=== PATIENT | male | born 1960 | race Caucasian/White ===

== ENCOUNTER 2018-09-29 10:46 | Emergency (ER) | payer BC ==
[~2018-09-29] VITALS: Ht 182.9 cm; Wt 88.5 kg
--- OUTSIDE RECORDS SUMMARY | 2018-09-29 10:49 | XMS REPORT | Summary of Care ---
Author Author [facility] Organization [facility] Address Unknown Phone Unavailable Encounter HQ Rosina(FIN) [id number] Date(s): 07/12/17 - 07/14/17 [facility] [id number] [place] [address]- S [phone] Encounter Diagnosis Pneumonia, unspecified organism (Final) - Sepsis, unspecified organism (Final) - 07/23/17 Pneumonia, unspecified organism (Final) - Acidosis (Final) - Chronic obstructive pulmonary disease with (acute) exacerbation (Final) - Chronic obstructive pulmonary disease with acute lower respiratory infection (Final) - Nicotine dependence, cigarettes, uncomplicated (Final) - Essential (primary) hypertension (Final) - Discharge Disposition: Home or Self Care Attending Physician: Yoselin Chamberlain MD Admitting Physician: Yoselin Chamberlain MD Vital Signs 1 2 3 Most recent to oldest [Reference Range]: 177.8 cm (07/12/17 6:56 AM) Height 97.9 DegF (07/14/17 8:37 AM) 97.4 DegF (07/14/17 4:53 AM) 97.5 DegF (07/14/17 1:19 AM) Temperature Oral [96.4-99.1 DegF] 136/70 mmHg (07/14/17 8:37 AM) 153/85 mmHg *HI* (07/14/17 4:53 AM) 155/87 mmHg *HI* (07/14/17 1:19 AM) Blood Pressure [90-140/60-90 mmHg] 16 BRMIN (07/14/17 8:37 AM) 16 BRMIN (07/14/17 8:21 AM) 16 BRMIN (07/14/17 4:53 AM) Respiratory Rate [14-20 BRMIN] 79 bpm (07/14/17 8:37 AM) 71 bpm (07/14/17 4:53 AM) 74 bpm (07/14/17 1:19 AM) Peripheral Pulse Rate [60-100 bpm] 91.364 kg (07/12/17 6:56 AM) Weight 28.9 m2 (07/12/17 6:56 AM) Body Mass Index Problem List No data available for this section Allergies, Adverse Reactions, Alerts Substance Reaction Severity Status NKDA Active Medications acetaminophen 650 mg, 2 tab, Route: PO, Drug form: TAB, ONCE, kg, Priority: STAT, Start date: 07/12/17 4:19:00 OBSERVER HELPER, Stop date: 07/12/17 4:19:00 OBSERVER HELPER Notes: Do not exceed 4 gm/day. (Same as: Tylenol) Start Date: 07/12/17 Stop Date: 07/12/17 Status: Completed albuterol-ipratropium 2.5-0.5 mg inhalation solution 3 mL, Route: NEB, Drug Form: SOLN, kg, RQID, STAT, Start date: 07/12/17 4:17:00 OBSERVER HELPER, Duration: 30 day, Stop date: 08/10/17 19:00:00 CDT Notes: (Same as: Duoneb) Start Date: 07/12/17 Stop Date: 07/14/17 Status: Discontinued albuterol-ipratropium 2.5-0.5 mg inhalation solution 3 mL, Route: NEB, Drug Form: SOLN, kg, RQ4H, PRN Shortness of breath, STAT, Star t date: 07/12/17 5:22:00 OBSERVER HELPER, Duration: 30 day, Stop date: 08/11/17 5:21:00 CDT Notes: (Same as: Duoneb) Start Date: 07/12/17 Stop Date: 07/14/17 Status: Discontinued Ativan 1 mg, 0.5 mL, Route: IVP, Drug form: INJ, ONCE, Dosing Weight 91.364, kg, PRN An xiety, Start date: 07/12/17 20:45:00 OBSERVER HELPER Notes: (Same as: Ativan) Start Date: 07/12/17 Stop Date: 07/12/17 Status: Completed azithromycin + Sodium Chloride 0.9% IV 250 mL 500 mg, Route: IVPB, ONCE, kg, Priority: STAT, Start date: 07/12/17 4:33:00 OBSERVER HELPER, Stop date: 07/12/17 4:33:00 OBSERVER HELPER, ABX Indication: Pneumonia Notes: (Same As: Zithromax IV) Start Date: 07/12/17 Stop Date: 07/12/17 Status: Completed benzonatate 100 mg oral capsule 100 mg=1 cap, PO, TID, PRN as needed for cough, X 5 day, # 15 caplet, 0 Refill(s ), Pharmacy: [id number] Start Date: 07/14/17 Stop Date: 07/19/17 Status: Completed bisoprolol-hydrochlorothiazide 2.5 mg-6.25 mg oral tablet 1 tab, PO, BID, 0 Refill(s) Start Date: 07/12/17 Stop Date: 07/12/17 Status: Discontinued bisoprolol-hydrochlorothiazide 5 mg-6.25 mg oral tablet 1 tab, PO, BID, 0 Refill(s) Start Date: 07/12/17 Status: Ordered bisoprolol-hydrochlorothiazide 5 mg-6.25 mg oral tablet 1 tab, Route: PO, Drug Form: TAB, Dosing Weight 91.364, kg, BID, Start date: 03/22 17:00:00 CDT, Duration: 30 day, Stop date: 08/12/17 9:00:00 CDT Start Date: 07/13/17 Stop Date: 07/13/17 Status: Discontinued cefTRIAXone 1 gm, Route: IVPB, ONCE, kg, Priority: STAT, Start date: 07/12/17 4:33:00 OBSERVER HELPER, S top date: 07/12/17 4:33:00 OBSERVER HELPER, ABX Indication: Pneumonia Start Date: 07/12/17 Stop Date: 07/12/17 Status: Completed docusate 100 mg, 1 cap, Route: PO, Drug form: CAP, BID, Dosing Weight 91.364, kg, PRN Con stipation, Start date: 07/13/17 10:27:00 CDT, Duration: 30 day, Stop date: 08/12 10:26:00 CDT Notes: (Same as: Colace) (Do Not Crush) Start Date: 07/13/17 Stop Date: 07/14/17 Status: Discontinued enalapril 20 mg, PO, Daily, 0 Refill(s) Start Date: 07/12/17 Status: Ordered enalapril 20 mg, 2 tab, Route: PO, Drug form: TAB, Daily, Dosing Weight 91.364, kg, Start date: 07/13/17 15:00:00 CDT, Duration: 30 day, Stop date: 08/12/17 9:00:00 CDT Notes: (Same as: Vasotec) Start Date: 07/13/17 Stop Date: 07/14/17 Status: Discontinued folic acid 1 mg, 1 tab, Route: PO, Drug form: TAB, Daily, Dosing Weight 91.364, kg, Start d ate: 07/14/17 9:00:00 CDT, Duration: 5 day, Stop date: 07/18/17 9:00:00 CDT Notes: (Same as: Folvite) Start Date: 07/14/17 Stop Date: 07/14/17 Status: Discontinued guaiFENesin liquid 100 mg/ 5 mL 200 mg, 10 mL, Route: PO, Drug Form: LIQ, Dosing Weight 91.364, kg, Q4H, PRN Cou gh, Start date: 07/13/17 10:43:00 CDT, Duration: 30 day, Stop date: 08/12/17 10: 42:00 CDT Notes: (Same as: Robitussin) Start Date: 07/13/17 Stop Date: 07/14/17 Status: Discontinued guaiFENesin liquid 100 mg/ 5 mL 100 mg, 5 mL, Route: PO, Drug Form: LIQ, Dosing Weight 91.364, kg, Q4H, PRN Coug h, Start date: 07/12/17 18:38:00 OBSERVER HELPER, Duration: 30 day, Stop date: 08/11/17 18:3 7:00 CDT Notes: (Same as: Robitussin) Start Date: 07/12/17 Stop Date: 07/13/17 Status: Discontinued hydrochlorothiazide 6.25 mg, 0.5 tab, Route: PO, Drug form: TAB, Daily, Start date: 07/13/17 15:00:0 0 CDT, Duration: 30 day, Stop date: 08/12/17 9:00:00 CDT Notes: (Same as: Hydrodiuril). Give with food. Start Date: 07/13/17 Stop Date: 07/13/17 Status: Discontinued ibuprofen 600 mg, 1 tab, Route: PO, Drug form: TAB, ONCE, kg, Priority: STAT, Start date: 07/12/17 5:15:00 OBSERVER HELPER, Stop date: 07/12/17 5:15:00 OBSERVER HELPER Notes: (Same as: Motrin)"Do Not Crush" Take with food. Start Date: 07/12/17 Stop Date: 07/12/17 Status: Completed Levaquin 750 mg, 150 mL, Route: IVPB, Drug form: SOLN, Q24H, kg, Start date: 07/12/17 6:0 0:00 OBSERVER HELPER, Duration: 30 day, Stop date: 08/10/17 6:00:00 CDT, ABX Indication: Pne umonia Notes: (Same as:Levaquin) Start Date: 07/12/17 Stop Date: 07/14/17 Status: Discontinued Levaquin 750 mg oral tablet 750 mg=1 tab, PO, Daily, X 5 day, # 5 tab, 0 Refill(s), Pharmacy: [id number] Start Date: 07/14/17 Stop Date: 07/19/17 Status: Completed LORazepam 2 mg, 1 mL, Route: IVP, Drug form: INJ, Q2H, Dosing Weight 91.364, kg, PRN Withd aimee, Start date: 07/13/17 11:17:00 CDT, Duration: 30 day, Stop date: 08/12/17 11:16:00 CDT Notes: (Same as: Ativan) Start Date: 07/13/17 Stop Date: 07/14/17 Status: Discontinued multivitamin 1 tab, Route: PO, Dosing Weight 91.364, kg, Daily, Start date: 07/14/17 9:00:00 CDT, Duration: 5 day, Stop date: 07/18/17 9:00:00 CDT Start Date: 07/14/17 Stop Date: 07/13/17 Status: Deleted multivitamin with minerals 1 tab, Route: PO, Drug Form: TAB, Daily, Start date: 07/14/17 9:00:00 CDT, Durat ion: 30 day, Stop date: 08/12/17 9:00:00 CDT Notes: (Same as:Thera-M, Theragran-M)WASTE: F/P - Black; E - Municipal Trash Bin Give with food. Start Date: 07/14/17 Stop Date: 07/14/17 Status: Discontinued nicotine 14 mg, 1 patch, Route: TOP, Drug form: ERFILM, Daily, Dosing Weight 91.364, kg, Start date: 07/12/17 14:00:00 OBSERVER HELPER, Duration: 30 day, Stop date: 08/11/17 9:00:00 CDT Notes: (Same as: Habitrol)"Remove old patch before application of new patch"WAST E: F/P - P Waste Black; E - P Waste Black Start Date: 07/12/17 Stop Date: 07/14/17 Status: Discontinued normal saline 0.9% IV 1,000 mL 1,000 mL, Rate: 100 ml/hr, Infuse over: 10 hr, Route: IV, Dosing Weight 91.364 k g, Total Volume: 1,000, Start date: 07/12/17 9:40:00 OBSERVER HELPER, Duration: 30 day, Stop date: 08/11/17 9:39:00 CDT, 2.14, m2 Start Date: 07/12/17 Stop Date: 07/13/17 Status: Discontinued potassium chloride 40 mEq, 2 tab, Route: PO, Drug form: ERTAB, PRN, Dosing Weight 91.364, kg, PRN A bnormal Lab Result, Electrolyte replacement, Start date: 07/14/17 11:20:00 CDT, Duration: 30 day, Stop date: 08/13/17 11:19:00 CDT Notes: (Same as: K-Dur 20)"Do Not Crush" With food and full glass of water Start Date: 07/14/17 Stop Date: 07/14/17 Status: Discontinued potassium chloride 40 mEq, 2 tab, Route: PO, Drug form: ERTAB, ONCE, Dosing Weight 91.364, kg, PRN Abnormal Lab Result, Electrolyte replacement, Start date: 07/13/17 7:35:00 CDT Notes: (Same as: K-Dur 20)"Do Not Crush" With food and full glass of water Start Date: 07/13/17 Stop Date: 07/13/17 Status: Completed predniSONE 40 mg, 2 tab, Route: PO, Drug form: TAB, Daily, Dosing Weight 91.364, kg, Start date: 07/13/17 9:00:00 CDT, Duration: 30 day, Stop date: 08/11/17 9:00:00 CDT Notes: Take with food. Start Date: 07/13/17 Stop Date: 07/14/17 Status: Discontinued predniSONE 60 mg, 3 tab, Route: PO, Drug form: TAB, Daily, kg, Priority: STAT, Start date: 07/12/17 5:22:00 OBSERVER HELPER, Duration: 30 day, Stop date: 08/10/17 9:00:00 CDT Notes: Take with food. Start Date: 07/12/17 Stop Date: 07/13/17 Status: Discontinued predniSONE 20 mg oral tablet 40 mg=2 tab, PO, Daily, X 3 day, # 6 tab, 0 Refill(s), Pharmacy: [id number] Start Date: 07/14/17 Stop Date: 07/17/17 Status: Completed Symbicort 160/4.5 inhalation aerosol with adapter 2 inhalation, Route: INHALATION, Drug Form: AERO/A, Dosing Weight 91.364, kg, RB ID, Start date: 07/12/17 9:39:00 OBSERVER HELPER, Duration: 30 day, Stop date: 08/11/17 8:00 :00 CDT Notes: (Same as: Symbicort)WASTE: Aerosol - Return to Pharmacy Start Date: 07/12/17 Stop Date: 07/14/17 Status: Discontinued Symbicort 80/4.5 inhalation aerosol with adapter 2 puff, INHALATION, BID, # 1 ea, 0 Refill(s), Pharmacy: [id number] Start Date: 07/14/17 Stop Date: 08/13/17 Status: Ordered Tessalon Perles 100 mg, 1 cap, Route: PO, Drug form: CAP, TID, Dosing Weight 91.364, kg, Start d ate: 07/12/17 19:00:00 OBSERVER HELPER, Duration: 30 day, Stop date: 08/11/17 17:00:00 CDT Notes: (Same As: Tessalon Perles)"Do Not Crush" Start Date: 07/12/17 Stop Date: 07/14/17 Status: Discontinued thiamine 100 mg, 1 tab, Route: PO, Drug form: TAB, Daily, Dosing Weight 91.364, kg, Start date: 07/14/17 9:00:00 CDT, Duration: 5 day, Stop date: 07/18/17 9:00:00 CDT Notes: (Same As: Vitamin B1) Start Date: 07/14/17 Stop Date: 07/14/17 Status: Discontinued Ventolin HFA 90 mcg/inh inhalation aerosol with adapter 2 puff, INHALER, Q6H, PRN wheezing, coughing, or shortness of breath, # 1 ea, 1 Refill(s), Pharmacy: [id number] Start Date: 07/14/17 Stop Date: 09/12/17 Status: Ordered Zebeta 5 mg, 1 tab, Route: PO, Drug form: TAB, Daily, Start date: 07/13/17 15:00:00 CDT , Duration: 30 day, Stop date: 08/12/17 9:00:00 CDT Notes: (Same As: Zebeta) Start Date: 07/13/17 Stop Date: 07/13/17 Status: Discontinued Ziac 5/6.25 (bisoprolol 5 mg/hctz 6.25 mg) tablet Ziac 5/6.25 (bisoprolol 5 mg/hctz 6.25 mg) tablet, 1 tablet, Drug form: MISC, [place]: PO, BID, 07/13/17 19:30:00 CDT, Duration: 30 day, Stop date: 08/12/17 17:00 :00 CDT Start Date: 07/13/17 Stop Date: 07/14/17 Status: Discontinued Results ELECTROLYTES 1 2 3 Most recent to oldest [Reference Range]: 140 mEq/L (07/14/17 4:50 AM) 143 mEq/L (07/13/17 4:39 AM) 136 mEq/L (07/12/17 3:39 AM) Sodium Lvl [135-145 mEq/L] 3.3 mEq/L *LOW* (07/14/17 4:50 AM) 3.1 mEq/L *LOW* (07/13/17 4:39 AM) 3.6 mEq/L (07/12/17 3:39 AM) Potassium Lvl [3.5-5.1 mEq/L] 108 mEq/L (07/14/17 4:50 AM) 111 mEq/L *HI* (07/13/17 4:39 AM) 104 mEq/L (07/12/17 3:39 AM) Chloride Lvl [95-109 mEq/L] 25 mEq/L (07/14/17 4:50 AM) 22 mEq/L *LOW* (07/13/17 4:39 AM) 24 mEq/L (07/12/17 3:39 AM) CO2 [24-32 mEq/L] 10.3 mEq/L (07/14/17 4:50 AM) 13.1 mEq/L (07/13/17 4:39 AM) 11.6 mEq/L (07/12/17 3:39 AM) AGAP [10.0-20.0 mEq/L] CHEM PANEL 1 2 3 Most recent to oldest [Reference Range]: 0.79 mg/dL (07/14/17 4:50 AM) 0.80 mg/dL (07/13/17 4:39 AM) 1.07 mg/dL (07/12/17 3:39 AM) Creatinine Lvl [0.50-1.40 mg/dL] 99 mL/min/1.73m2 1 *NA* (07/14/17 4:50 AM) 98 mL/min/1.73m2 2 *NA* (07/13/17 4:39 AM) 76 mL/min/1.73m2 3 *NA* (07/12/17 3:39 AM) eGFR 10 mg/dL (07/14/17 4:50 AM) 9 mg/dL (07/13/17 4:39 AM) 16 mg/dL (07/12/17 3:39 AM) BUN [7-22 mg/dL] 15 (07/12/17 3:39 AM) B/C Ratio [6-25] 129 mg/dL *HI* (07/14/17 4:50 AM) 117 mg/dL *HI* (07/13/17 4:39 AM) 137 mg/dL *HI* (07/12/17 3:39 AM) Glucose Lvl [70-99 mg/dL] 7.3 g/dL (07/12/17 3:39 AM) Total Protein [6.4-8.4 g/dL] 3.3 g/dL *LOW* (07/12/17 3:39 AM) Albumin Lvl [3.5-5.0 g/dL] 4.0 g/dL (07/12/17 3:39 AM) Globulin [2.7-4.2 g/dL] 0.8 (07/12/17 3:39 AM) A/G Ratio [0.7-1.6] 8.1 mg/dL *LOW* (07/14/17 4:50 AM) 7.9 mg/dL *LOW* (07/13/17 4:39 AM) 8.5 mg/dL (07/12/17 3:39 AM) Calcium Lvl [8.5-10.5 mg/dL] 33 unit/L (07/12/17 3:39 AM) ALT [0-65 unit/L] 20 unit/L (07/12/17 3:39 AM) AST [0-37 unit/L] 76 unit/L (07/12/17 3:39 AM) Alk Phos [39-136 unit/L] 0.7 mg/dL (07/12/17 3:39 AM) Bili Total [0.2-1.3 mg/dL] 204 unit/L (07/12/17 3:39 AM) Lipase Lvl [73-393 unit/L] 2.1 mMol/L (07/12/17 10:43 AM) 2.6 mMol/L *HI* (07/12/17 8:19 AM) 2.1 mMol/L (07/12/17 6:07 AM) Lactic Acid Lvl [0.5-2.2 mMol/L] 0.25 *HI* (07/12/17 8:23 AM) Procalcitonin Lvl [0.00-0.10] 1Result Comment: The eGFR is calculated using the CKD-EPI formula. In most young, healthy individuals the eGFR will be >90 mL/min/1.73m2. The eGFR declines with age. An eGFR of 60-89 may be normal in some populations, particularly the elderly, for whom the CKD-EPI formula has not been extensively validated. Use of the eGFR is not recommended in the following populations: Individuals with unstable creatinine concentrations, including patients and those with serious co-morbid conditions. Patients with extremes in muscle mass or diet. The data above are obtained from the National Kidney Disease Education Program ( NKDEP) which additionally recommends that when the eGFR is used in patients with extremes of body mass index for purposes of drug dosing, the eGFR should be mul tiplied by the estimated BMI. 2Result Comment: The eGFR is calculated using the CKD-EPI formula. In most young, healthy individuals the eGFR will be >90 mL/min/1.73m2. The eGFR declines with age. An eGFR of 60-89 may be normal in some populations, particularly the elderly, for whom the CKD-EPI formula has not been extensively validated. Use of the eGFR is not recommended in the following populations: Individuals with unstable creatinine concentrations, including patients and those with serious co-morbid conditions. Patients with extremes in muscle mass or diet. The data above are obtained from the National Kidney Disease Education Program ( NKDEP) which additionally recommends that when the eGFR is used in patients with extremes of body mass index for purposes of drug dosing, the eGFR should be mul tiplied by the estimated BMI. 3Result Comment: The eGFR is calculated using the CKD-EPI formula. In most young, healthy individuals the eGFR will be >90 mL/min/1.73m2. The eGFR declines with age. An eGFR of 60-89 may be normal in some populations, particularly the elderly, for whom the CKD-EPI formula has not been extensively validated. Use of the eGFR is not recommended in the following populations: Individuals with unstable creatinine concentrations, including patients and those with serious co-morbid conditions. Patients with extremes in muscle mass or diet. The data above are obtained from the National Kidney Disease Education Program ( NKDEP) which additionally recommends that when the eGFR is used in patients with extremes of body mass index for purposes of drug dosing, the eGFR should be mul tiplied by the estimated BMI. CARDIAC ENZYMES 1 2 3 Most recent to oldest [Reference Range]: 100 unit/L (07/12/17 3:39 AM) Total CK [12-191 unit/L] 0.8 ng/mL (07/12/17 3:39 AM) CK MB [0.5-3.6 ng/mL] 0.8 (07/12/17 3:39 AM) CK MB Index [0.0-2.5] <0.02 ng/mL (07/12/17 3:39 AM) Troponin-I [0.00-0.40 ng/mL] 100 pg/mL (07/12/17 3:39 AM) proBNP [0-125 pg/mL] HEMATOLOGY 1 2 3 Most recent to oldest [Reference Range]: 17.9 K/CMM *HI* (07/14/17 4:50 AM) 18.4 K/CMM *HI* (07/13/17 4:39 AM) 17.4 K/CMM *HI* (07/12/17 3:39 AM) WBC [3.7-10.4 K/CMM] 4.27 M/CMM *LOW* (07/14/17 4:50 AM) 4.30 M/CMM *LOW* (07/13/17 4:39 AM) 5.04 M/CMM (07/12/17 3:39 AM) RBC [4.70-6.10 M/CMM] 14.0 g/dL (07/14/17 4:50 AM) 14.0 g/dL (07/13/17 4:39 AM) 16.2 g/dL (07/12/17 3:39 AM) Hgb [14.0-18.0 g/dL] 40.7 % *LOW* (07/14/17 4:50 AM) 40.8 % *LOW* (07/13/17 4:39 AM) 47.0 % (07/12/17 3:39 AM) Hct [42.0-54.0 %] 95.3 fL *HI* (07/14/17 4:50 AM) 94.9 fL *HI* (07/13/17 4:39 AM) 93.3 fL (07/12/17 3:39 AM) MCV [80.0-94.0 fL] 32.7 pg *HI* (07/14/17 4:50 AM) 32.6 pg *HI* (07/13/17 4:39 AM) 32.1 pg *HI* (07/12/17 3:39 AM) MCH [27.0-31.0 pg] 34.3 g/dL (07/14/17 4:50 AM) 34.4 g/dL (07/13/17 4:39 AM) 34.4 g/dL (07/12/17 3:39 AM) MCHC [32.0-36.0 g/dL] 14.1 % (07/14/17 4:50 AM) 13.7 % (07/13/17 4:39 AM) 13.9 % (07/12/17 3:39 AM) RDW [11.5-14.5 %] 9.6 fL (07/14/17 4:50 AM) 9.4 fL (07/13/17 4:39 AM) 8.7 fL (07/12/17 3:39 AM) MPV [7.4-10.4 fL] 219 K/CMM (07/14/17 4:50 AM) 191 K/CMM (07/13/17 4:39 AM) 209 K/CMM (07/12/17 3:39 AM) Platelet [133-450 K/CMM] 83.1 % *HI* (07/14/17 4:50 AM) 87.4 % *HI* (07/13/17 4:39 AM) 85.0 % *HI* (07/12/17 3:39 AM) Segs [45.0-75.0 %] 6.0 % (07/12/17 3:39 AM) Bands [0.0-11.0 %] 11.4 % *LOW* (07/14/17 4:50 AM) 8.2 % *LOW* (07/13/17 4:39 AM) 9.0 % *LOW* (07/12/17 3:39 AM) Lymphocytes [20.0-40.0 %] 0.0 % (07/12/17 3:39 AM) Atypical Lymphs [<=0.0 %] 4.2 % (07/14/17 4:50 AM) 4.0 % (07/13/17 4:39 AM) 0.0 % *LOW* (07/12/17 3:39 AM) Monocytes [2.0-12.0 %] 0.6 % (07/14/17 4:50 AM) 0.2 % (07/13/17 4:39 AM) Eosinophils [0.0-4.0 %] 0.7 % (07/14/17 4:50 AM) 0.2 % (07/13/17 4:39 AM) Basophils [0.0-1.0 %] 14.8 K/CMM *HI* (07/14/17 4:50 AM) 16.1 K/CMM *HI* (07/13/17 4:39 AM) 15.8 K/CMM *HI* (07/12/17 3:39 AM) Segs-Bands # [1.5-8.1 K/CMM] 2.0 K/CMM (07/14/17 4:50 AM) 1.5 K/CMM (07/13/17 4:39 AM) 1.6 K/CMM (07/12/17 3:39 AM) Lymphocytes # [1.0-5.5 K/CMM] 0.8 K/CMM (07/14/17 4:50 AM) 0.7 K/CMM (07/13/17 4:39 AM) 0.0 K/CMM (07/12/17 3:39 AM) Monocytes # [0.0-0.8 K/CMM] 0.1 K/CMM (07/14/17 4:50 AM) Eosinophils # [0.0-0.5 K/CMM] 0.1 K/CMM (07/14/17 4:50 AM) Basophils # [0.0-0.2 K/CMM] Normal (07/12/17 3:39 AM) RBC Morph Normal (07/12/17 3:39 AM) Plt Morph 0.36 ug/mL FEU *NA* (07/12/17 3:39 AM) D-Dimer BACTERIAL - SEROLOGY 1 2 3 Most recent to oldest [Reference Range]: Urine *NA* (07/12/17 12:18 PM) Source Strep Negative (07/12/17 12:18 PM) Strep pneumoniae Ag [Negative] VIRAL - SEROLOGY 1 2 3 Most recent to oldest [Reference Range]: Negative (07/12/17 3:39 AM) Influ A [Negative] Negative (07/12/17 3:39 AM) Influ B [Negative] Immunizations No data available for this section Procedures Procedure Date Related Diagnosis Body Site Status Eye operation1 Completed 13573 Social History Social History Type Response Substance Abuse Use: None. Alcohol Current, Type Beer. Frequency: Daily. Smoking Status Current some day smoker; Type: Cigarettes; Ready to change: No; Concerns about tobacco use in household: No; Exposure to Tobacco Smoke None; Cigarette Smoking Last 365 Days Yes; Reg Smoking Cessation Counseling Yes entered on: 07/12/17 Assessment and Plan Extracted from: Title: Clinical Document Author: Yoselin Chamberlain MD Date: 07/13/17 Attending: Yoselin Chamberlain MDPhone: Service: Internal Medicine Code status: Full Code [Ordered] Reason for Admission: CAP Working DRG: None Documented Isolation: No Isolation/Standard Precautions Consulting Physicians: (none on file) Allergies (1) ActiveReaction NKDANone documented SUBJECTIVE: No acute events overnight. Has been having bothersome cough however sputum production is minimal for the patient. Denies any shortness of breath. Family at bedside OBJECTIVE: Review of Systems: 10 Point review of systems performed negative as of above PE: GENERAL APPEARANCE: alert and cooperative, and appears to be in no acute distress. HEAD: normocephalic, atraumatic EYES: PERRL, EOMI. MOUTH: Oral mucosa appears moist NECK: Neck supple, non-tender CARDIAC: Normal S1 and S2. No murmurs heard. Normal rate and rhythm. LUNGS: bilateral rhonchi is heard. ABDOMEN: Positive bowel sounds. Soft, nondistended, nontender. No guarding or rebound. EXTREMITIES: No lower extremity edema. Peripheral pulses intact. NEUROLOGICAL: CN II-XII intact. Strength and sensation symmetric and intact throughout. PSYCHIATRIC: Mood stable DateWt(kg)Wt(lb)Ht(cm)Ht(in)Method 07/12 (initial) 91.36 201.00Measured 77.80 70.00Stated VitalsTmp(F)[id number] 07/13 12:[id number]--- 07/13 08:[id number]--- 07/13 07:00 1697 3.0L/m 07/13 04:[id number] 3.0L/m 07/12 23:[id number] 3.0L/m 24 Hr Tmax: 99.5F (37.50c) at 07/12 23:46Vital Signs are the last 5 in the past 48 hours. Medications (17) Active Scheduled Meds (9): 07/12/17 albuterol-ipratropium (albuterol-ipratropium 2.5-0.5 mg inhalation solution) 3 mL NEB RQID 07/12/17 benzonatate (Tessalon Perles) 100 mg PO TID 07/12/17 budesonide-formoterol (Symbicort 160/4.5 inhalation aerosol with adapter) 2 inhalation INHALATION RBID 07/14/17 folic acid 1 mg PO Daily 07/12/17 levofloxacin (Levaquin) 750 mg IVPB Q24H 100 ml/hr 07/14/17 multivitamin with minerals 1 tab PO Daily 07/12/17 nicotine 14 mg TOP Daily 07/13/17 predniSONE 40 mg PO Daily 07/14/17 thiamine 100 mg PO Daily Unscheduled Meds: None PRN Meds (4): 07/13/17 LORazepam 2 mg IVP Q2H 07/12/17 albuterol-ipratropium (albuterol-ipratropium 2.5-0.5 mg inhalation solution) 3 mL NEB RQ4H 07/13/17 docusate 100 mg PO BID 07/13/17 guaiFENesin (guaiFENesin liquid 100 mg/ 5 mL) 200 mg PO Q4H One Time Meds (4): 07/12/17 (Completed) acetaminophen 650 mg PO ONCE 07/12/17 (Completed) azithromycin + Sodium Chloride 0.9% IV 250 mL 500 mg IVPB ONCE 166.67 ml/hr 07/12/17 (Completed) cefTRIAXone 1 gm IVPB ONCE 07/12/17 (Completed) ibuprofen 600 mg PO ONCE Continuous Infusions: None Lines, Tubes, and Drains: 07/12/2017 03:43 Peripheral Lines: Antecubital Right 18 gauge Over the needle catheter I&ORecordInOutBal 1124hr Tot 786 275 511 1024hr Tot 2192 275 1917 24hr Labs 07/13 0439 Glucose Ttp428 H BUN9 Creatinine Lvl0.80 Sodium Pso780 Potassium Lvl3.1 L Chloride Dyx326 H CO222 L AGAP13.1 Calcium Lvl7.9 L eGFR98 WBC18.4 H RBC4.30 L Hgb14.0 Hct40.8 L MCV94.9 H MCH32.6 H MCHC34.4 RDW13.7 Ppevnlis096 MPV9.4 Segs87.4 H Monocytes4.0 Lymphocytes8.2 L Eosinophils0.2 Basophils0.2 Segs-Bands #16.1 H Lymphocytes #1.5 Monocytes #0.7 07/12 1218 U Legion AgNegative Source StrepUrine Strep pneumoniae AgNegative 07/12 0823 Procalcitonin Lvl0.25 H ASSESSMENT & PLAN: Assessment: COPD exacerbation Possible early pneumonia Sepsis likely secondary to above Cough secondary to above History of hypertension Tobacco abuse Daily alcohol use Plan: Continue with bronchodilator therapy and Symbicort. Decrease prednisone to 40 mg daily. Wean off nasal cannula supplemental oxygen to maintain saturation more than 89% Has been afebrile in the past 24 hours. Continue IV Levaquin. Leukocytosis uptrend can be steroid-induced. Antitussives as needed. Increase guaifenesin. Continue scheduled Tessalon Perles. Blood pressure has been mostly stable. Medication reconciliation for home antihypertensive regimen Continue nicotine patch for tobacco abuse IV lorazepam as needed for possible alcohol withdrawal. DVT prophylaxis: SCDs and ambulation Disposition: Pending clinical improvement likely more than one midnight Extracted from: Title: Clinical Document Author: Thai Cramer MD Date: 07/12/17 PHD History and Physical Chief Complaint: SOB, cough HPI: Patient is a 56 yo M, h/o smoking and HTN, here because of SOB. All started yesterday around 6pm. Was afraid to go to sleep because he didn't think he'd wake up. He endorses cough productive of sputum. Also endorses fevers and chills, but denies chest pain, orthopnea, PND. On further questioning, patient states that he always has some "breathing Problems" at baseline "like all smokers", but nothing like what is currently happening. ROS: 12 point ROS is negative other than that described in HPI. Past Medical History: No qualifying data available Past Surgical History: No qualifying data available Family History: Reviewed and patient does not know. No qualifying data available Social History: No significant social history. Tobacco Details: Use: Current some day smoker. Type: Cigarettes. Ready to change: No. Household tobacco concerns: No. Tobacco smoke exposure: None. Did the Patient Smoke Cigarettes Anytime During the Last 365 Days? Yes. Cessation Counseling Provided? Yes. Medications: Medication List Active Medications Ordered albuterol-ipratropium: 3 mL, NEB, RQID. albuterol-ipratropium: 3 mL, NEB, Q4H, PRN: as needed for shortness of breath or wheezing. azithromycin + Sodium Chloride 0.9% IV 250 mL: 500 mg, 166.67 ml/hr, IVPB, ONCE. ibuprofen: 600 mg, PO, ONCE. levofloxacin: 750 mg, IVPB, Q24H. predniSONE: 60 mg, PO, Daily. Medications Inactivated in the Last 72 Hours acetaminophen: 650 mg, 2 tab, PO, ONCE. acetaminophen: 650 mg, 2 tab, PYXIS, ONCE. albuterol-ipratropium: 3 mL, PYXIS, ONCE. azithromycin: 500 mg, PYXIS, ONCE. cefTRIAXone: 1 gm, IVPB, ONCE. cefTRIAXone: 1 gm, PYXIS, ONCE. Sodium Chloride 0.9% IV: 100 mL, PYXIS, ONCE. Sodium Chloride 0.9% IV: 250 mL, PYXIS, ONCE. Allergies: Allergies: None Documented Physical Exam: Gen: Alert and oriented. No apparent distress. HEENT: Normocephalic and atraumatic. Pupils equal, round, and reactive to light. Extraoccular muscles grossly intact. Ears, nose and throat clear. Neck: No lymphadenopathy. No thyromegally. No bruits. Cardiac: Regular rate and rhythm. No murmurs, rubs, or gallops. Lungs: Decreased air movement. Clear to auscultation bilaterally. Back: No tenderness to palpation. No costo-vetebral angle tenderness. Abdomen: Soft. No tenderness to palpation. Bowel sounds appropriate. : Deferred Extremities: No cyanosis, clubbing, or edema. Pulses intact and palpable. Skin: No rashes or lesions. Neuro: Cranial nerves grossly intact. No obvious focal deficits. Labs: Labs A/G Ratio: 0.8 (07/12/17 04:08:31) AGAP: 11.6 mEq/L (07/12/17 04:08:31) Albumin Lvl: 3.3 g/dL Low (07/12/17 04:08:31) Alk Phos: 76 unit/L (07/12/17 04:08:31) ALT: 33 unit/L (07/12/17 04:08:31) AST: 20 unit/L (07/12/17 04:08:31) Atypical Lymphs: 0 % (07/12/17 04:35:23) B/C Ratio: 15 (07/12/17 04:08:31) Bands: 6 % (07/12/17 04:35:23) Bili Total: 0.7 mg/dL (07/12/17 04:08:31) BUN: 16 mg/dL (07/12/17 04:08:31) Calcium Lvl: 8.5 mg/dL (07/12/17 04:08:31) Chloride Lvl: 104 mEq/L (07/12/17 04:08:31) CK MB: 0.8 ng/mL (07/12/17 04:08:36) CK MB Index: 0.8 (07/12/17 04:08:38) CO2: 24 mEq/L (07/12/17 04:08:31) Creatinine Lvl: 1.07 mg/dL (07/12/17 04:08:31) D-Dimer: 0.36 ug/mL FEU (07/12/17 03:59:09) eGFR: 76 mL/min/1.73m2 (07/12/17 04:08:33) Globulin: 4 g/dL (07/12/17 04:08:31) Glucose Lvl: 137 mg/dL High (07/12/17 04:08:31) Hct: 47 % (07/12/17 04:01:18) Hgb: 16.2 g/dL (07/12/17 04:01:18) Influ A: cNegative (07/12/17 04:03:49) Influ B: cNegative (07/12/17 04:03:49) Lipase Lvl: 204 unit/L (07/12/17 04:08:34) Lymphocytes: 9 % Low (07/12/17 04:35:23) Lymphocytes #: 1.6 K/CMM (07/12/17 04:35:23) MCH: 32.1 pg High (07/12/17 04:01:18) MCHC: 34.4 g/dL (07/12/17 04:01:18) MCV: 93.3 fL (07/12/17 04:01:18) Monocytes: 0 % Low (07/12/17 04:35:23) Monocytes #: 0 K/CMM (07/12/17 04:35:23) MPV: 8.7 fL (07/12/17 04:01:18) Platelet: 209 K/CMM (07/12/17 04:01:18) Plt Morph: Normal (07/12/17 04:35:23) Potassium Lvl: 3.6 mEq/L (07/12/17 04:08:31) proBNP: 100 pg/mL (07/12/17 04:08:37) RBC: 5.04 M/CMM (07/12/17 04:01:18) RBC Morph: Normal (07/12/17 04:35:23) RDW: 13.9 % (07/12/17 04:01:18) Segs: 85 % High (07/12/17 04:35:23) Segs-Bands #: 15.8 K/CMM High (07/12/17 04:35:23) Sodium Lvl: 136 mEq/L (07/12/17 04:08:31) Total CK: 100 unit/L (07/12/17 04:08:32) Total Protein: 7.3 g/dL (07/12/17 04:08:31) Troponin-I: <0.02 (07/12/17 04:08:35) WBC: 17.4 K/CMM High (07/12/17 04:01:18) Studies: No qualifying data available. Assessment: Patient is a 56 yo M, h/o smoking and HTN, here because of SOB. Plan: 1. SOB - - COPD exacerbation vs. early pneumonia. - may also have the flu. - influenza test was negative, but still early on in disease, so may not be positive yet. - will get follow up CXR tomorrow to evaluate for developing consolidation. - patient febrile with elevated WBC. - will treat with ABx. Levaquin. - BCx and SCx pending. - breathing tx's - steroids 2. HTN - - home BP meds 3. Proph - - ambulation 4. Code - FULL Addendum Patient seen and examined. by Agree with assessment and plan as below. Cintia, Patient states significant clinical improvement however still have some trouble breathing. Wyatt He might have underlying COPD however does not have any significant wheezing at this point Rich CORDOBA but does have decreased air movement. on Leukocytosis noted. Will check pro calcitonin, urine Legionella and strep pneumonia 07/12/2017 antigen. Lactic acidosis noted. Gentle IV fluid hydration. 09:47 Currently breathing better on room air per the patient.
[2018-09-29] MEDS ORDERED: ALBUTEROL/IPRATROPIUM 3 ML NEB NEB ONE (11:00)
[2018-09-29] MEDS ORDERED: PREDNISONE 20 MG TAB PO ONE (11:00)
[2018-09-29 11:09] LABS: BASOPHILS # (AUTO) 0.1 (0.0-0.1); BASOPHILS % 0.6 % (0.0-1.0); EOSINOPHILS # (AUTO) 0.1 (0.0-0.4); EOSINOPHILS % 0.8 % (0.0-6.0); HEMATOCRIT 48.5 % (38.2-49.6); HEMOGLOBIN 17.9 g/dL (14.0-18.0); LYMPHOCYTES # (AUTO) 1.9 (1.0-3.2); LYMPHOCYTES % 17.9 % (18.0-39.1); MEAN CORPUSCULAR HEMOGLOBIN 33.6 pg (28-32); MEAN CORPUSCULAR HGB CONC 36.9 g/dL (31-35); MONOCYTES # (AUTO) 0.6 (0.2-0.8); MONOCYTES % 5.6 % (4.4-11.3); NEUTROPHILS # (AUTO) 8.1 (2.1-6.9); NEUTROPHILS % 74.6 % (38.7-80.0); PLATELET COUNT 252 x10e3/uL (140-360); RED BLOOD COUNT 5.33 x10e6/uL (4.3-5.7); RED CELL DISTRIBUTION WIDTH 13.3 % (11.7-14.4)
[2018-09-29 11:23] LABS: ALANINE AMINOTRANSFERASE 34 IU/L (0-55); ALBUMIN/GLOBULIN RATIO 1.1 (0.8-2.0); ALKALINE PHOSPHATASE 81 IU/L (40-150); ANION GAP 12.8 mmol/L (8-16); BLOOD UREA NITROGEN 14 mg/dL (7-26); BUN/CREATININE RATIO 13 (6-25); CALCIUM 9.9 mg/dL (8.4-10.2); CARBON DIOXIDE 22 mmol/L (22-29); CHLORIDE 101 mmol/L (98-107); CREATININE, SERUM 1.04 mg/dL (0.72-1.25); EST GLOMERULAR FILTRATION RATE > 60 ML/MIN (60-); GLUCOSE 146 mg/dL (74-118); POTASSIUM 3.8 mmol/L (3.5-5.1); SODIUM 132 mmol/L (136-145)
--- NOTE | 2018-09-29 12:23 | Diagnostic Imaging Report ---
EXAMINATION: CHEST 2 VIEWS INDICATION: Shortness of breath. COMPARISON: None FINDINGS: TUBES and LINES: None. LUNGS: Lungs are not well inflated. There is no evidence of pneumonia or pulmonary edema. PLEURA: No pleural effusion or pneumothorax. HEART AND MEDIASTINUM: The cardiomediastinal silhouette is unremarkable. There are atherosclerotic calcifications within the aorta. BONES AND SOFT TISSUES: No acute osseous abnormality. UPPER ABDOMEN: No free air under the diaphragm. IMPRESSION: No acute radiographic abnormality. Signed by: Dr. Sarah Velasquez MD on 09/29/2018 12:20 PM
[2018-09-29 12:35] LABS: BILIRUBIN,URINE NEGATIVE (NEGATIVE); CLARITY,URINE CLEAR (CLEAR); COLOR,URINE YELLOW (YELLOW); KETONES,URINE NEGATIVE (NEGATIVE); LEUKOCYTE ESTERASE ,URINE NEGATIVE (NEGATIVE); NITRITE,URINE NEGATIVE (NEGATIVE); PROTEIN,URINE DIPSTICK NEGATIVE (NEGATIVE); URINE UROBILINOGEN 0.2 mg/dL (0.2 - 1)
[2018-09-29 12:51] LABS: BACTERIA,URINE RARE /HPF; EPITHELIAL CELLS,URINE RARE /LPF; RBC,URINE 0-5 /HPF (0-5); WBC,URINE (MAN) 0-5 /HPF (0-5)
== END 2018-09-29 14:10 | disposition home or self-care (01) ==
LOC: ER 10:46
DX: R06.09 Other forms of dyspnea (principal); R05 Cough; F17.210 Nicotine dependence, cigarettes, uncomplicated; I44.4 Left anterior fascicular block; H54.40 Blindness, one eye, unspecified eye
CPT/HCPCS: 36415; 71046; 80053; 81001; 83880; 84484; 85025; 85379; 93005; 94640; 99284; J7512